=== PATIENT | male | born 1965 | race Caucasian/White ===

== ENCOUNTER → 2019-06-04 | Outpatient (CLI) | payer OTHER ==
[~2019-06-04] MED LIST: ASPIRIN325 PO; BACTRIM DS TAB1 EACH PO; CIPRO250 M1 PO; FLOMAX0.4 MG PO; HYDROCHLOROTHIA25 M2 PO; LIPITOR10 MG PO; NOHOMEMEDICATIONS; NORCO 5-325 TA1 EAC1 PO; NORCO 5-325 TA1 EACH PO; PERCOCET 5-3251 EACH PO; PROVENTIL HFA6.7 G1 INH; QUINU10 PD; TAMSULOSIN HCL0.4 MG PO; TESTOSTERONE INJ; TORADOL 10 MG T10 MG PO; ZOFRAN ODT4 MG PO
== END ==
LOC: M.LAB 01:32
DX: E87.6 Hypokalemia (principal)

== ENCOUNTER 2019-08-24 17:43 | Emergency (ER) | payer OTHER ==
[~2019-08-24] VITALS: Ht 188 cm; Wt 108.9 kg
[2019-08-24 18:26] LABS: ABSOLUTE BASOPHILS 0.1 thou/uL (0.0-0.2); ABSOLUTE EOSINOPHILS 0.1 thou/uL (0.0-0.7); ABSOLUTE LYMPHOCYTES 1.9 thou/uL (0.8-5.3); ABSOLUTE MONOCYTES 0.6 thou/uL (0.0-1.2); ABSOLUTE NEUTROPHILS 3.7 thou/uL (1.6-8.1); BASOPHILS 0.8 %; EOSINOPHILS 1.5 %; HEMATOCRIT 44.8 % (42.0-52.0); HEMOGLOBIN 15.9 gm/dL (14.0-18.0); LYMPHOCYTES 29.6 %; MCH 31.4 pg (26.0-34.0); MCHC 35.5 g/dL (28.0-37.0); MCV 88.5 fL (80.0-100.0); MONOCYTES 9.5 %; MPV 8.7 fl. (7.2-11.1); NUCLEATED RBCS 0 /100WBC; PLATELET COUNT* 167 thou/uL (150-400); POLYS 58.6 %; RBC 5.07 mil/uL (4.50-6.00); RDW-CV 13.7 % (10.5-14.5); WBC 6.4 thou/uL (4.0-11.0)
[2019-08-24 18:30] LABS: URINE BILIRUBIN NEGATIVE (Negative); URINE BLOOD NEGATIVE (Negative); URINE CLARITY CLEAR; URINE COLOR YELLOW; URINE GLUCOSE-RANDOM NEGATIVE (Negative); URINE KETONES NEGATIVE (Negative); URINE LEUKOCYTES-REFLEX NEGATIVE (Negative); URINE NITRITE-REFLEX NEGATIVE (Negative); URINE PROTEIN NEGATIVE (Negative); URINE UROBILINOGEN 0.2 E.U./dl (0.2-1.0)
[2019-08-24 18:32] LABS: CREATININE 1.2 mg/dL (0.6-1.3); POTASSIUM 3.9 mmol/L (3.5-5.1)
[2019-08-24 18:37] LABS: TOTAL BILIRUBIN 0.4 mg/dL (<0.1-1.0); TOTAL PROTEIN 7.3 g/dL (6.4-8.2)
[2019-08-24] MEDS ORDERED: CATAPRES0.1 MG PO (20:49)
[2019-08-24] MEDS ORDERED: AUGMENTIN 875-1 EACH PO (20:49)
[2019-08-24 21:05] VITALS: BP 133/104
--- NOTE | 2019-08-25 10:20 | EKG ---
[place] [address] ELECTROCARDIOGRAM REPORT Name: JASONROZINA BASURTO [id number] Admission: 08/24/19 Attend Phys: Discharge: 08/24/19 Date of : 67 Report #: [id number] THIS REPORT FOR: //name// [facility] ED Test Date: 2019-08-24 Test Time: 18:09:00 Pat Name: ROZINA GOMEZ Department: Room: Gender: M [employer]pper: PABLO : 1965 Requested By: Anusha Olguin Order Number: [id number] MD: Lj Sharma Measurements Intervals [place] Rate: 73 P: 17 FL: 189 QRS: -3 QRSD: 103 T: 7 QT: 384 QTc: 424 Interpretive Statements Sinus rhythm Consider anterior infarct Compared to ECG 10/26/2016 10:20:27 No significant changes Electronically Signed On 08-25-2019 10:19:59 [employer]NAGER NET by Lj Sharma [email or web address] <ELECTRONICALLY SIGNED> By: Lj Sharma MD, [facility] 08/25/19 1019 1809 1809 Lj Sharma MD, FACC /EPI
== END 2019-08-24 21:05 | disposition home or self-care (01) ==
LOC: M.ERS 17:43
PROVIDERS: Nurse Practitioner Family
DX: I10 Essential (primary) hypertension (principal); J01.30 Acute sphenoidal sinusitis, unspecified; Z87.442 Personal history of urinary calculi